=== PATIENT | male | born 2005 | race Caucasian/White ===

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

== ENCOUNTER 2023-10-12 16:59 | Emergency (ER) | payer MEDICAID, SELFPAY ==
[2023-10-12 17:00] VITALS: BP 105/84; PULSE 106; RESP 16; TEMP 36.9; O2SAT 94; BMI 18.4
--- NOTE | 2023-10-12 17:18 | EX.ED.VIS.EY ---
HPI History of Present Illness Chief Complaint: Eye Problem Informant: patient Narrative Narrative: Several days worth gradual onset pain, redness left eye, in addition to trouble focusing on things and having some blurry vision. No foreign body sensation or discharge. He is having some headaches. He uses no glasses or contacts for any reason. He has no history of other systemic medical problems that he knows of. No injury to the eye that he knows of, and no exposure to chemicals. He denies any visual field cuts. No issues with the right eye. [facility] Medical History Bone fracture Back problem H/O emotional problems Alcohol abuse Drug abuse FHx: migraine headaches Home Medications ?Medication ?Instructions ?Recorded ?Last Taken ?Type NK 01/04/21 Unknown History Allergy/AdvReac Type Severity Reaction Status Date / Time No Known Allergies Allergy Verified 10/12/23 17:00 Family History (Updated 10/31/22 @ 13:14 by Navneet Urias) Other Anxiety Asthma Depression Surgical History H/O wrist surgery Social History adopted: No household members: family housing: house number of children: 0 current occupational status: employed 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 current occupational exposures/hazards: No pets and animals: Yes pets and animals: dog(s) and other leisure activities: exercise and games history of recent travel: No sexually active: No Smoking Status: Never smoker Smokeless tobacco user: other alcohol intake: former substance use type: marijuana and other details: former user of benzos well-balanced diet: rarely or never caffeine: Yes eating out: 1-3 times/week what type of physical activity do you participate in: bicycling and weight training frequency: 3-4 times per week tamra/presybeterian: Alevism seatbelt use: always do you feel safe at home: Yes ROS ROS ED Constitutional Constitutional ED: Denies chills or fever(s) Eyes Eyes: Reports as per HPI, blurry vision left and eye pain; Denies diplopia, floaters, loss of peripheral vision, loss of vision, requires corrective lenses, seeing flashes or spots in vision ENT ENT ED: Denies ear pain, rhinorrhea or sore throat Gastrointestinal Gastrointestinal: Denies nausea or vomiting Neurologic Neurologic: Reports headache(s); Denies paresthesias or weakness EXAM Physical Exam Const Vital Signs: 10/12/23 17:00 Temperature 98.4 F Temperature Source Temporal Pulse Rate 106 H Respiratory Rate 16 Blood Pressure 105/84 H Blood Pressure Mean 91 Pulse Ox 94 Oxygen Delivery Method Room Air Positive well nourished and well developed General Appearance ED: well developed and NAD HEENT atraumatic; Negative for tenderness Mouth ED: Yes oral and palatal mucosa normal and Yes lips normal Mouth: oral and palatal mucosa normal and lips normal Eyes PERRL and EOMs intact bilaterally Eyes Narrative: diffuse scleral/conj injection left eye only Neck supple Neuro oriented x3, CN's II-XII intact bilaterally and gait normal Sensorium / Orientation: alert Skin Lesions: no lesions Rashes: no rashes MDM MDM MDM Narrative Medical decision making narrative: I performed a thorough slit-lamp examination. He does not have hypopyon or hyphema. I do not see or appreciate cell or flare. 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 The cornea appears clear, I did see a couple floaters but they blanked off and were not sticking and there is no dye uptake with fluorescein staining. I did apply tetracaine and he said it helped. This is more consistent with surface pathology, but his symptoms are more consistent with iritis or glaucoma. I tested his pressures with a Kwaku-Pen, it is 22 in the left eye with less than 5% error between measurements. This is reassuring and rules out acute angle-closure glaucoma. I discussed all this with Dr. Hilario with ophthalmology who agrees to see him in the morning and advises just some antibiotic ointment topically for comfort for right now as opposed to any steroids. Patient alerted, he is to go to the office at 8 AM to be seen. Discharge Plan Triage Chief Complaint: Eye Problem ED Provider: Neo Wells Dx/Rx/DC Orders Clinical Impression: Acute left eye pain Instructions: ED Conjunctivitis, Nonspecific, ED Iritis Prescriptions: No Action STEFAN Primary Care Provider: Uma Donnelly Referrals: Leoncio Hilario MD [Med Staff - Active Staff] - 10/13/23 8:00 am Emily Malone MD [Non-Staff] - Print Language: Frisian Disposition Disposition: Home, Self Care
[2023-10-12] MEDS: Erythromycin Base 1 OPTH.TUBE 1 APPLIC LEFT EYE (19:04)
[2023-10-12 19:05] VITALS: BP 101/66; PULSE 86; RESP 16; TEMP 37.3; O2SAT 99
[2023-10-12] MEDS: Fluorescein 1 MG STRIP 1 STRIP LEFT EYE (19:11)
[2023-10-12] MEDS: Tetracaine 0.5% Ophthalmic Bottle 3 DRP LEFT EYE (19:11)
== END 2023-10-12 19:12 | disposition home or self-care (01) ==
PROVIDERS: Emergency Provider Emergency Medicine; PCP Internal Medicine; Visit Provider Emergency Medicine
DX: H57.12 Ocular pain, left eye (principal); G24.5 Blepharospasm; R51.9 Headache, unspecified
CPT/HCPCS: 99283